=== PATIENT | female | born 1995 | race American Indian/Alaskan Native ===

== ENCOUNTER 2018-09-05 16:22 | Emergency (ER) | payer MEDICAID ==
[2018-09-05 17:16] VITALS: BP 108/62
--- NOTE | 2018-09-05 17:19 | Event Note ---
ED Screening Note ED Screening Note: pt presents with lower back pain states she is also having some chest discomfort no dysuria OB: [facility] pt is 7 weeks no abd pain, no vaginal bleeding This initial assessment/diagnostic orders/clinical plan/treatment(s) is/are subject to change based on patients health status, clinical progression and re- assessment by fellow clinical providers in the ED. Further treatment and workup at subsequent clinical providers discretion. Patient/guardian urged not to elope from the ED as their condition may be serious if not clinically assessed and managed. Initial orders include: labs, UA, EKG
[2018-09-05 18:06] LABS: Bacteria,Urine 1+ /HPF (Negative); Bilirubin,Urine NEG (Negative); Blood,Urine NEG (Negative); Color,Urine Yellow (Yellow); Mucus,Urine FEW /HPF; Protein,Urine <15 mg/dL mg/dL (Negative); Urobilinogen,Urine < 2.0 mg/dL (<2.0)
[2018-09-05 18:34] LABS: Basophils # (Auto) 0.1 K/mm3 (0.0-0.1); Basophils % (Auto) 0.5 % (0.0-1.8); Eosinophils # (Auto) 0.1 K/mm3 (0.0-0.4); Eosinophils % (Auto) 0.5 % (0.0-4.3); Hematocrit 31.7 % (30.3-42.9); Hemoglobin 10.6 gm/dl (10.1-14.3); Lymphocytes # (Auto) 2.4 K/mm3 (1.2-5.4); Lymphocytes % (Auto) 15.6 % (13.4-35.0); Mean Corpuscular HGB Conc 34 % (30-34); Mean Corpuscular Volume 85 fl (79-97); Monocytes # (Auto) 0.8 K/mm3 (0.0-0.8); Monocytes % (Auto) 5.1 % (0.0-7.3); Platelet Count 305 K/mm3 (140-440); Red Blood Count 3.74 M/mm3 (3.65-5.03); Red Cell Distribution Width 14.2 % (13.2-15.2)
[2018-09-05 18:45] LABS: BUN/Creatinine Ratio 12; Blood Urea Nitrogen 6 mg/dL (7-17); Calcium 8.8 mg/dL (8.4-10.2); Hemolysis Index 0
== END 2018-09-05 22:50 | disposition left against medical advice (07) ==
LOC: ED 16:22
DX: O26.891 Other specified pregnancy related conditions, first trimester (principal); M54.5 Low back pain; R07.89 Other chest pain; Z3A.01 Less than 8 weeks gestation of pregnancy; Z53.21 Procedure and treatment not carried out due to patient leaving prior to being seen by health care provider
CPT/HCPCS: 36415; 80048; 81001; 84702; 85025; 93005; 93010

== ENCOUNTER 2018-11-04 20:54 | Inpatient (IN) | payer MEDICAID ==
[2018-11-04] MEDS ORDERED: AMPICILLIN/NS 2 GM/100 ML 2 GM/100 ML BAG IV ONE (21:43)
[2018-11-04] MEDS ORDERED: NARCAN 0.4 MG/1 ML IV PRN (21:43)
[2018-11-04] MEDS ORDERED: ZOFRAN IV PRN (21:43)
[2018-11-04] MEDS ORDERED: STADOL IV PRN (21:43)
[2018-11-04] MEDS ORDERED: SUBLIMAZE IV PRN (21:43)
[2018-11-04] MEDS ORDERED: MINERAL OIL PO PRN (21:43)
[2018-11-04] MEDS ORDERED: BRETHINE IVP PRN (21:43)
[2018-11-04] MEDS ORDERED: XYLOCAINE 2% INFILTRATI ONE (21:43)
[2018-11-04] MEDS ORDERED: BRETHINE SUB-Q PRN (21:43)
[2018-11-04 22:57] LABS: Hemoglobin 11.5 gm/dl (10.1-14.3); Mean Corpuscular HGB Conc 33 % (30-34); Mean Corpuscular Volume 84 fl (79-97); Platelet Count 283 K/mm3 (140-440); Red Blood Count 4.16 M/mm3 (3.65-5.03); Red Cell Distribution Width 14.8 % (13.2-15.2)
[2018-11-04] MEDS: LACTATED RINGERS 1,000 ML IV SCH (23:06)
[2018-11-05] LABS: Alanine Aminotransferase 13 units/L (7-56)
[2018-11-05 01:29] LABS: Bilirubin,Urine NEG (Negative); Blood,Urine NEG (Negative); Color,Urine Yellow (Yellow); Urobilinogen,Urine < 2.0 mg/dL (<2.0)
[2018-11-05 01:34] LABS: RBC,Urine > 182.0 /HPF (0.0-6.0); WBC,Urine > 182.0 /HPF (0.0-6.0)
[2018-11-05 01:49] LABS: Uric Acid 3.8 mg/dL (3.5-7.6)
[2018-11-05] MEDS: AMPICILLIN/NS 1 GM/50 ML 1 GM/50 ML BAG IV SCH ×2 (02:48→07:37)
[2018-11-05] MEDS: LACTATED RINGERS 1,000 ML IV SCH ×2 (03:12→05:46)
[2018-11-05] MEDS ORDERED: NARCAN 2 MG/2 ML IV PRN (03:23)
--- NOTE | 2018-11-05 03:26 | Anesthesia Consultation ---
Anesthesia Consult and Med Hx Date of service: 11/05/18 - Airway Anesthetic Teeth Evaluation: Poor, Chipped ROM Head & Neck: Adequate Mental/Hyoid Distance: Adequate Mallampati Class: Class II Intubation Access Assessment: Probably Good - Pulmonary Exam CTA: Yes - Cardiac Exam Cardiac Exam: RRR - Pre-Operative Health Status ASA Pre-Surgery Classification: ASA2 Proposed Anesthetic Plan: Epidural - Pulmonary Hx Smoking: No Hx Asthma: No Hx Respiratory Symptoms: No SOB: No COPD: No Home Oxygen Therapy: No Hx Pneumonia: No Hx Sleep Apnea: No - Cardiovascular System Hx Hypertension: Yes (Chronic) Hx Coronary Artery Disease: No Hx Heart Attack/AMI: No Hx Angina: No Hx Percutaneous Transluminal Coronary Angioplasty (PTCA): No Hx Cardia Arrhythmia: No Hx Pacemaker: No Hx Internal Defibrillator: No Hx Valvular Heart Disease: No Hx Heart Murmur: No Hx Peripheral Vascular Disease: No - Central Nervous System Hx Neuromuscular Disorder: No Hx Seizures: No CVA: No Hx Back Pain: No Hx Psychiatric Problems: No - Gastrointestinal Hx Ulcer: No Hx Gastroesophageal Reflux Disease: No - Endocrine Hx Renal Disease: No Hx End Stage Renal Disease: No Hx Cirrhosis: No Hx Liver Disease: No Hx Insulin Dependent Diabetes: No Hx Non-Insulin Dependent Diabetes: No Hx Thyroid Disease: No Hx Hypothyroidism: No Hx Hyperthyroidism: No - Hematic Hx Anemia: No Hx Sickle Cell Disease: No - Other Systems Hx Alcohol Use: No Hx Substance Use: No Hx Cancer: No Hx Obesity: No
[2018-11-05] MEDS ORDERED: fentaNYL-BUPIV 2 MCG/ML-0.125% 200 MCG/100 ML BAG EPIDURAL ONE (03:32)
[2018-11-05] MEDS ORDERED: fentaNYL-BUPIV 2 MCG/ML-0.125% 200 MCG/100 ML BAG EPIDURAL SCH (04:00)
[2018-11-05] MEDS ORDERED: PITOCin/NS 30 UNIT/500ML 30 UNITS/500 ML BAG IV SCH (07:00)
--- NOTE | 2018-11-05 09:22 | History and Physical Report ---
History of Present Illness Date of examination: 11/05/18 Date of admission: 11/04/18 22:26 Chief complaint: Contractions History of present illness: The patient is a 22 yo at 38.4 weeks EGA who presents with regular uterine contractions. She denies JOHNSON, scotomata. She reports positive movement, denies LOF or vaginal bleeding. She has had regular care with [facility]. 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: herpes (seropositive) Family/Genetic History: diabetes (MGM, PGM), hypertension (father, mother), cancer (MGM breast) - Obstetrical History Expected Date of Delivery: 11/15/18 Actual Gestation: 38 Week(s) 4 Day(s) : 2 Para: 0 Hx # Term Pregnancies: 0 Spontaneous Abortions: 1 Number of Living Children: 0 Medications and Allergies Allergies Allergy/AdvReac Type Severity Reaction Status Date / Time Sulfa (Sulfonamide Allergy Angioedema Verified 09/05/18 16:23 Antibiotics) Home Medications Medication Instructions Recorded Confirmed Last Taken Type Vitamin 1 tab PO DAILY 11/05/18 11/05/18 11/03/18 09:00 History Active Meds: Active Medications Butorphanol Tartrate (Stadol) 2 mg IV Q2H PRN PRN Reason: Pain , Severe (7-10) Ephedrine Sulfate (Ephedrine Sulfate) 10 mg IV Q2M PRN PRN Reason: Hypotension Ephedrine Sulfate (Ephedrine Sulfate) 10 mg IV Q2M PRN PRN Reason: Hypotension Fentanyl (Sublimaze) 100 mcg IV Q2H PRN PRN Reason: Labor Pain Last Admin: 11/04/18 22:55 Dose: 100 mcg Documented by: Oxytocin/Sodium Chloride (Pitocin/Ns 20 Unit/1000ml Drip) 20 units in 1,000 mls @ 125 mls/hr IV DIRECT ZITA Oxytocin/Sodium Chloride (Pitocin/Ns 30 Unit/500ml) 30 units in 500 mls @ 2 mls/hr IV TITR ZITA; Protocol Last Titration: 11/05/18 08:45 Dose: 4 ml/hr, 4 mls/hr Documented by: Lactated Ringer's (Lactated Ringers) 1,000 mls @ 125 mls/hr IV DIRECT ZITA Last Admin: 11/05/18 05:46 Dose: 125 mls/hr Documented by: Ampicillin Sodium (Ampicillin/Ns 1 Gm/50 Ml) 1 gm in 50 mls @ 100 mls/hr IV Q4HR ZITA; Protocol Last Admin: 11/05/18 07:37 Dose: 100 mls/hr Documented by: Fentanyl/Bupivacaine/Sodium Chlor (Fentanyl-Bupiv 2 Mcg/Ml-0.125%) 200 mcg in 100 mls @ 12 mls/hr EPIDURAL TITR ZITA; Protocol Last Admin: 11/05/18 03:51 Dose: 12 mls/hr Documented by: Mineral Oil (Mineral Oil) 30 ml PO QHS PRN PRN Reason: Constipation Naloxone HCl (Narcan 0.4 Mg/1 Ml) 0.1 mg IV Q2MIN PRN PRN Reason: Res Rate </= 8 or 02 SAT < 92% Naloxone HCl (Narcan 2 Mg/2 Ml) 0.2 mg IV Q5M PRN PRN Reason: Respiratory sedation Ondansetron HCl (Zofran) 4 mg IV Q8H PRN PRN Reason: Nausea And Vomiting Last Admin: 11/04/18 22:59 Dose: 4 mg Documented by: Terbutaline Sulfate (Brethine) 0.25 mg SUB-Q ONCE PRN PRN Reason: Hyperstimulation/Hypertonicity Terbutaline Sulfate (Brethine) 0.25 mg IVP ONCE PRN PRN Reason: Hyperstimulation/Hypertonicity Review of Systems All systems: negative Ears, nose, mouth and throat: voice changes (lost voice after vomiting last night) Cardiovascular: no chest pain Respiratory: no cough, no shortness of breath Genitourinary: vaginal discharge, contractions, no vaginal bleeding, no leakage of fluid, no genital sores - Vital Signs Vital signs: Vital Signs Pulse BP 95 H 128/84 11/04/18 21:21 11/04/18 21:21 Temp Pulse Resp BP Pulse Ox 97.8 F 88 18 92/52 100 11/04/18 23:05 11/05/18 09:16 11/04/18 23:55 11/05/18 08:56 11/05/18 09:16 - Physical Exam Lungs: Positive: Normal air movement Abdomen: Positive: normal appearance, soft Genitourinary (Female): Positive: normal external genitalia, normal perenium Vagina: Positive: normal moisture Uterus: Positive: normal size (gravid), normal contour Anus/Rectum: Positive: normal perianal skin Extremities: Positive: normal - Obstetrical Uterine Contraction Monitor Mode: External Cervical Dilatation: 8 Cervical Effacement Percentage: 90 station: -2 with BBOW Uterine Contraction Frequency (min): 5 Uterine Contraction Duration: 60 Uterine Contraction Pattern: Regular Results Result Diagrams: 11/04/18 22:39 11/04/18 23:16 Abnormal lab results 11/04/18 11/04/18 11/04/18 Range/Units 00:30 22:39 23:16 WBC 17.4 H (4.5-11.0) K/mm3 Creatinine 0.4 L (0.7-1.2) mg/dL Urine WBC (Auto) > 182.0 H (0.0-6.0) /HPF All other labs normal. Assessment and Plan 22 yo at 38.4 wks EGA in active labor Chronic hypertension- BP presently wnl GBS positive- Ampicillin prophylaxis HSV positive, on Valtrex suppression Possible LVH- continue to monitor status Borderline IUGR, resolved Pt declines amniotomy. Augment with Pitocin for regular contractions Anticipate
[2018-11-05] MEDS: PITOCin/NS 20 UNIT/1000ML DRIP 20 UNITS/1,000 ML BAG IV SCH ×2 (10:38→11:57)
[2018-11-05] MEDS ORDERED: CYTOTEC PR ONE (10:40)
[2018-11-05] MEDS ORDERED: CYTOTEC ONE (10:41)
--- NOTE | 2018-11-05 10:59 | Procedure Note ---
OB Delivery Note - Delivery Date of Delivery: 11/05/18 Surgeon: JANY CASSIDY Estimated blood loss: other (400mL) - Vaginal Delivery presentation: vertex Delivery position: OA Intrapartum events: PROM->1hr before delivery, meconium, uterine atony Delivery induction: none Delivery augmentation: rupture of membranes, pitocin Delivery monitor: external FHT, external uterine Route of delivery: Delivery placenta: spontaneous Delivery cord: 3 umbilical vessels Episiotomy: none Delivery laceration: other (Bilateral periurethral, right hemostatic, Left periurethral repaired with a figure of eight of 3-0 Vicryl, perineal abrasion hemostatic ) Delivery repair: vicryl Anesthesia: epidural Delivery comments: Pt progressed to complete/complete/+3 and pushed to deliver a viable female via under epidural anesthesia over intact perineum. Head delivered in SUSIE position, quickly followed by shoulders and body. Cord clamped and cut and handed to NICU staff in attendance for meconium. Placenta delivered spontaneously (3VC, intact). Uterine atony noted. Misoprostol 800 mcg placed per rectum with improvement in uterine tone. Vagina and perineum explored. Bilateral periturethrals noted. Right periurethral hemostatic. Left periurethral repaired with a figure of eight of eight of 3-0 Vicryl. Perineal abrasion noted to be hemostatic. EBL 400 mL. - Infant A at 1 minute: 8 at 5 minutes: 9 Gender: Female (2748g (6lb 1oz) @ 1030 am)
[2018-11-05] MEDS ORDERED: PITOCin/NS 20 UNIT/1000ML DRIP 20 UNITS/1,000 ML BAG IV SCH (13:13)
[2018-11-05] MEDS ORDERED: DERMOPLAST TP PRN (13:13)
[2018-11-05] MEDS ORDERED: PHENERGAN PO PRN (13:13)
[2018-11-05] MEDS ORDERED: TYLENOL PO PRN (13:13)
[2018-11-05] MEDS ORDERED: TUCKS PAD TP PRN (13:13)
[2018-11-05] MEDS ORDERED: DULCOLAX PR PRN (13:13)
[2018-11-05] MEDS ORDERED: PHENERGAN PR PRN (13:13)
[2018-11-05] MEDS ORDERED: ZOFRAN IV PRN (13:13)
[2018-11-05] MEDS ORDERED: MILK OF MAGNESIA PO PRN (13:13)
[2018-11-05] MEDS ORDERED: SODIUM CHLORIDE FLUSH SYRINGE 10 ML IV NR (13:13)
[2018-11-05] MEDS ORDERED: BENADRYL PO PRN (13:13)
[2018-11-05] MEDS ORDERED: LANSINOH TP PRN ×2 (13:13)
[2018-11-05] MEDS: IBUPROFEN PO SCH ×2 (13:45→20:20)
[2018-11-05] MEDS: NORCO 5/325 PO PRN ×2 (13:46→20:19)
[2018-11-05] MEDS: FEOSOL PO SCH (22:28)
[2018-11-06 00:01] LABS: Hematocrit 31.2 % (30.3-42.9); Hemoglobin 10.1 gm/dl (10.1-14.3)
[2018-11-06] MEDS: IBUPROFEN PO SCH ×5 (01:11→23:01)
--- NOTE | 2018-11-06 08:05 | Progress Note ---
Assessment and Plan A: PPD# 1 s/p at term, Chronic HTN with new complaint of chest pain P: EKG now. Cardiology consult. Closely monitor clinical status. Subjective - Subjective Date of service: 11/06/18 Principal diagnosis: Chronic HTN, s/p Interval history: Pt reports intermittent chest pain, worse with inspiration since yesterday. Otherwise no complaints. Patient reports: appetite normal, voiding normally, ambulating normally : doing well Objective - Vital Signs Latest vital signs: Vital Signs Temp Pulse Resp BP BP Pulse Ox 11/06/18 03:09 18 11/06/18 00:00 98.4 F 70 16 114/72 11/05/18 20:20 18 11/05/18 20:19 18 11/05/18 19:30 98.4 F 72 19 120/80 11/05/18 16:35 97.2 F L 72 20 100/56 11/05/18 12:55 99.7 F H 82 18 127/70 100 11/05/18 12:05 96 H 133/71 11/05/18 11:50 76 128/63 11/05/18 11:37 75 129/66 11/05/18 11:20 88 126/78 11/05/18 11:06 96 H 142/82 11/05/18 11:00 99.4 F 18 11/05/18 10:51 108 H 100 11/05/18 10:50 108 H 86 11/05/18 10:46 110 H 100 11/05/18 10:41 116 H 100 11/05/18 10:40 107 H 84 11/05/18 10:36 102 H 100 11/05/18 10:31 124 H 100 11/05/18 10:30 65 76 L 11/05/18 10:26 107 H 100 11/05/18 10:24 111 H 119/55 11/05/18 10:23 125 H 93 11/05/18 10:21 85 100 11/05/18 10:16 97 H 100 11/05/18 10:11 97 H 100 11/05/18 10:06 90 100 11/05/18 10:01 96 H 100 11/05/18 09:56 99 H 100 11/05/18 09:54 96 H 96/46 11/05/18 09:51 93 H 100 11/05/18 09:46 112 H 100 11/05/18 09:41 103 H 100 11/05/18 09:36 91 H 100 11/05/18 09:31 95 H 100 11/05/18 09:26 86 100 11/05/18 09:25 92 H 104/56 11/05/18 09:21 86 100 11/05/18 09:16 88 100 11/05/18 09:11 92 H 100 11/05/18 09:06 81 100 11/05/18 09:01 75 100 11/05/18 08:56 80 92/52 100 11/05/18 08:54 85 98/52 11/05/18 08:51 96 H 98 11/05/18 08:46 97 H 97 11/05/18 08:41 106 H 96 11/05/18 08:36 100 H 95 11/05/18 08:31 102 H 96 11/05/18 08:26 92 H 99 11/05/18 08:24 88 111/60 11/05/18 08:21 95 H 100 11/05/18 08:16 98 H 100 11/05/18 08:11 100 H 100 11/05/18 08:06 83 99 Intake and Output 11/05/18 11/06/18 11/06/18 22:59 06:59 14:59 Intake Total 420 Output Total 400 Balance 20 Intake: Oral 120 Intake, Free Water 300 Output: Urine 400 Void 400 Other: Total, Intake Amount 120 Total, Output Amount 400 # Voids Void 2 - Exam Breasts: Present: deferred Cardiovascular: Present: Regular rate Lungs: Present: Clear to auscultation Abdomen: Present: soft Extremities: Present: normal. Absent: tenderness
[2018-11-06] MEDS: FEOSOL PO SCH ×2 (09:11→23:00)
[2018-11-06] MEDS: NORCO 5/325 PO PRN (10:40)
[2018-11-06] MEDS ORDERED: MYLICON PO ONE (11:00)
[2018-11-06] MEDS ORDERED: M-M-R II VACCINE SUB-Q ONE (11:02)
[2018-11-06] MEDS ORDERED: BOOSTRIX IM ONE (11:02)
--- NOTE | 2018-11-06 12:44 | Consultation ---
History of Present Illness Consult date: 11/06/18 Requesting physician: JANY CASSIDY Consult reason: chest pain History of present illness: The pt is a 22 YO female with a past medical history of HTN during and recurrent chest pain. She is followed in our office by Dr. Hill. She presented yesterday for delivery of her baby and subsequently delivered her baby vaginally. She c/o chest pain and thus cardiology has been consulted. She states that she experienced chest pain during delivery and then intermittently overnight after delivery. She describes her chest pain as a midsternal aching pain which is aggravate by deep inspiration and movement. She denies any SOB, palpitations, n/v, diaphoresis, dizziness or syncope. On evaluation she denies any chest pain. She underwent echo in our office on 10/15/2018 which was normal. Past History Past Medical History: hypertension Medications and Allergies Allergies Allergy/AdvReac Type Severity Reaction Status Date / Time Sulfa (Sulfonamide Allergy Angioedema Verified 09/05/18 16:23 Antibiotics) Home Medications Medication Instructions Recorded Confirmed Last Taken Type Ferrous Sulfate [Feosol 325 MG tab] 325 mg PO BID #60 tablet 11/05/18 Unknown Rx HYDROcodone/APAP 5-325 [[place] 1 each PO Q6HR PRN #20 tablet 11/05/18 Unknown Rx 5/325] Ibuprofen [Motrin] 800 mg PO Q8HR PRN #30 tablet 11/05/18 Unknown Rx Vitamin 1 tab PO DAILY 11/05/18 11/05/18 11/03/18 09:00 History Active Meds: Active Medications Acetaminophen (Tylenol) 650 mg PO Q4H PRN PRN Reason: Pain MILD(1-3)/Fever >100.5/JOHNSON Acetaminophen/Hydrocodone Bitart ([place] 5/325) 2 each PO Q6H PRN PRN Reason: Pain, Moderate (4-6) Last Admin: 11/06/18 10:40 Dose: 2 each Documented by: Benzocaine/Menthol (Dermoplast) 1 spray TP PRN PRN PRN Reason: Pain, Moderate (4-6) Last Admin: 11/05/18 13:47 Dose: 1 spray Documented by: Bisacodyl (Dulcolax) 10 mg MI BID PRN PRN Reason: Constipation Diphenhydramine HCl (Benadryl) 25 mg PO Q6H PRN PRN Reason: Itching Ephedrine Sulfate (Ephedrine Sulfate) 10 mg IV Q2M PRN PRN Reason: Hypotension Ferrous Sulfate (Feosol) 325 mg PO BID [facility] Last Admin: 11/06/18 09:11 Dose: 325 mg Documented by: Fentanyl/Bupivacaine/Sodium Chlor (Fentanyl-Bupiv 2 Mcg/Ml-0.125%) 200 mcg in 100 mls @ 12 mls/hr EPIDURAL TITR ZITA; Protocol Last Infusion: 11/05/18 10:40 Dose: 12 mls/hr Documented by: Oxytocin/Sodium Chloride (Pitocin/Ns 20 Unit/1000ml Drip) 20 units in 1,000 mls @ 250 mls/hr IV DIRECT ZITA Ibuprofen (Ibuprofen) 600 mg PO Q6H [facility] Last Admin: 11/06/18 09:11 Dose: 600 mg Documented by: Magnesium Hydroxide (Milk Of Magnesia) 30 ml PO HS PRN PRN Reason: Constipation Multi-Ingredient Ointment (Lansinoh) 1 applic TP PRN PRN PRN Reason: Sore Nipples Multi-Ingredient Ointment (Lansinoh) 1 applic TP PRN PRN PRN Reason: dryness/cracking Naloxone HCl (Narcan 2 Mg/2 Ml) 0.2 mg IV Q5M PRN PRN Reason: Respiratory sedation Ondansetron HCl (Zofran) 4 mg IV Q8H PRN PRN Reason: Nausea And Vomiting Promethazine HCl (Phenergan) 25 mg MI Q6H PRN PRN Reason: Nausea And Vomiting Promethazine HCl (Phenergan) 25 mg PO Q6H PRN PRN Reason: Nausea And Vomiting Sodium Chloride (Sodium Chloride Flush Syringe 10 Ml) 10 ml IV PRN NR Stop: 11/06/18 13:12 [place]/Glycerin (Tucks Pad) 1 each TP PRN PRN PRN Reason: Hemorrhoid/cleansing/soothing Last Admin: 11/05/18 13:46 Dose: 1 each Documented by: Review of Systems Constitutional: no weight loss, no weight gain, no fever, no chills, no sweats Ears, nose, mouth and throat: no ear pain, no nose pain, no sinus pressure, no sinus pain Cardiovascular: chest pain, high blood pressure, no orthopnea, no palpitations, no rapid/irregular heart beat, no edema, no syncope, no lightheadedness, no shortness of breath, no dyspnea on exertion Respiratory: no cough, no shortness of breath, no dyspnea on exertion, no congestion, no wheezing, no pain on inspiration Gastrointestinal: no abdominal pain, no nausea, no vomiting, no diarrhea, no constipation, no change in bowel habits Genitourinary Female: no pelvic pain, no flank pain, no dysuria, no urinary jenny quency, no urgency Musculoskeletal: no neck stiffness, no neck pain, no shooting arm pain, no arm numbness/tingling, no low back pain, no shooting leg pain Integumentary: no rash, no pruritis, no redness, no sores, no wounds Neurological: no head injury, no paralysis, no weakness, no parathesias, no numbness, no tingling, no seizures, no syncope Psychiatric: no anxiety Endocrine: no cold intolerance, no heat intolerance Hematologic/Lymphatic: no easy bruising, no easy bleeding Allergic/Immunologic: no urticaria, no wheezing Physical Examination Vital Signs Pulse BP 95 H 128/84 11/04/18 21:21 11/04/18 21:21 General appearance: no acute distress HEENT: Positive: PERRL, Normocephaly, Mucus Membranes Moist Neck: Positive: neck supple, trachea midline Cardiac: Positive: Reg Rate and Rhythm, S1/S2 Lungs: Positive: Decreased Breath Sounds Neuro: Positive: Grossly Intact Abdomen: Negative: Tender Skin: Negative: Rash Musculoskeletal: No Pain Extremities: Absent: edema Results 11/05/18 22:54 11/04/18 23:16 CBC 11/05/18 Range/Units 22:54 Hgb 10.1 (10.1-14.3) gm/dl Hct 31.2 (30.3-42.9) % - Imaging and Cardiology Echo: report reviewed (She underwent echo in our office on 10/15/2018 which was normal. ) EKG: report reviewed, image reviewed EKG interpretations - Telemetry EKG Rhythm: Sinus Rhythm - EKG Sinus rhythms and dysrhythmias: sinus rhythm Assessment and Plan ECG with SR, NAF. Chris negative for AMI x 1 set. Echo done in our office on 10/15/2018 was normal. Chest pain currently resolved. Obtain second set of Chris and repeat ECG in AM. Likely d/c home tomorrow. The patient has been seen in conjunction with Dr. Ton Guerrero who agrees with the assessment and plan of care. - Patient Problems (1) Chest pain Current Visit: Yes Status: Acute (2) state Current Visit: Yes Status: Acute (3) HTN (hypertension) Current Visit: Yes Status: Chronic
[2018-11-06] MEDS: PEPCID PO SCH (15:41)
--- NOTE | 2018-11-06 21:39 | Post Anesthesia Evaluation ---
- Post Anesthesia Evaluation Patient Participated: Yes Airway Patent: Yes Stable Respiratory Function: Yes Nausea/Vomiting: No Temp > 96.8F: Yes Pain Manageable: Yes Adequeate Hydration: Yes Anesthesia Complications: No Block Receding Appropriately: Yes Patient on Ventilator: No
--- NOTE | 2018-11-07 10:49 | Progress Note ---
Assessment and Plan no further cp ce neg x 3 ecg wnl x 2 stable cv status no further testing warranted at this time - Patient Problems (1) Chest pain Current Visit: Yes Status: Acute (2) state Current Visit: Yes Status: Acute (3) HTN (hypertension) Current Visit: Yes Status: Chronic Subjective Date of service: 11/07/18 Principal diagnosis: Chronic HTN, s/p Interval history: resting comfortably Objective Vital Signs Temp Pulse Resp BP BP Pulse Ox 11/07/18 08:43 98.1 F 54 L 20 136/75 100 11/07/18 00:00 98.4 F 74 18 114/75 11/06/18 16:42 97.6 F 51 L 18 118/65 92 - Physical Examination HEENT: Positive: PERRL, Normocephaly, Mucus Membranes Moist Neck: Positive: neck supple, trachea midline Neuro: Positive: Grossly Intact Abdomen: Negative: Tender Skin: Negative: Rash Musculoskeletal: No Pain Extremities: Absent: edema - Imaging and Cardiology EKG: report reviewed, image reviewed Echo: report reviewed (She underwent echo in our office on 10/15/2018 which was normal. ) - EKG Sinus rhythms and dysrhythmias: sinus rhythm
[2018-11-07] MEDS: PEPCID PO SCH (14:15)
[2018-11-07] MEDS: NORCO 5/325 PO PRN (14:16)
[2018-11-07] MEDS: FEOSOL PO SCH ×2 (14:20→23:46)
--- NOTE | 2018-11-07 15:17 | Progress Note ---
Assessment and Plan A: PPD# 2 s/p at term, Chronic HTN with new complaint of chest pain, now with nausea, vomiting and dyspnea s/p Cardiology consult with normal labs, unlikely cardiac etiology P: CBC, CMP, amylase, lipase STAT. Restart IV fluids. With dyspnea and chest pain close to vaginal delivery, plan to do CTA to rule out PE and continuous pulse ox. Closely monitor clinical status. Subjective - Subjective Date of service: 11/07/18 Principal diagnosis: Chronic HTN, s/p , chest pain Interval history: Pt reports that her chest pain has continued despite administration of Pepcid and Simethicone, and she now has pain in her mid-back. She reports nausea and vomiting all day yesterday and this morning. She has not tolerated her oral pain medication. She is very frustrated that she does not feel well. She now reports shortness of breath today. Patient reports: voiding normally, flatus, bowel movement, pain poorly controlled, ambulating normally, nauseated, no appetite normal : doing well Objective - Vital Signs Latest vital signs: Vital Signs Temp Pulse Resp BP BP Pulse Ox 11/07/18 08:43 98.1 F 54 L 20 136/75 100 11/07/18 00:00 98.4 F 74 18 114/75 11/06/18 16:42 97.6 F 51 L 18 118/65 92 - Exam Narrative Exam: pt appears somewhat ill Breasts: Present: deferred Cardiovascular: Present: Regular rate Lungs: Present: Clear to auscultation Abdomen: Present: soft, normal bowel sounds Extremities: Present: normal
[2018-11-07] MEDS: D5/0.45NS 1,000 ML IV SCH ×2 (16:15→23:52)
[2018-11-07] MEDS ORDERED: TORADOL IV PRN (16:54)
[2018-11-07 17:01] LABS: Basophils % (Auto) 0.3 % (0.0-1.8); Eosinophils % (Auto) 0.3 % (0.0-4.3); Hematocrit 32.8 % (30.3-42.9); Hemoglobin 11.3 gm/dl (10.1-14.3); Lymphocytes # (Auto) 1.3 K/mm3 (1.2-5.4); Lymphocytes % (Auto) 9.8 % (13.4-35.0); Mean Corpuscular HGB Conc 35 % (30-34); Mean Corpuscular Volume 83 fl (79-97); Monocytes # (Auto) 0.3 K/mm3 (0.0-0.8); Monocytes % (Auto) 2.3 % (0.0-7.3); Platelet Count 298 K/mm3 (140-440); Red Blood Count 3.97 M/mm3 (3.65-5.03); Red Cell Distribution Width 14.3 % (13.2-15.2)
[2018-11-07 17:28] LABS: Alanine Aminotransferase 17 units/L (7-56); Albumin 3.4 g/dL (3.9-5); BUN/Creatinine Ratio 10; Blood Urea Nitrogen 4 mg/dL (7-17); Calcium 8.5 mg/dL (8.4-10.2); Hemolysis Index 1
--- NOTE | 2018-11-07 19:32 | Cat Scan Report ---
CTA CHEST WITH IV CONTRAST INDICATION: Persistent chest pain and dyspnea after vaginal delivery. TECHNIQUE: Axial CT images were obtained through the chest after injection of 100 mL Omnipaque 350 IV contrast. 3 plane MIP reconstructions were produced. All CT scans at this location are performed using CT dose reduction for ALARA by means of automated exposure control. COMPARISON: None available. FINDINGS: PULMONARY ARTERIES: Well-opacified without suspicious filling defects concerning for thromboemboli. AORTA AND ARTERIES: No acute abnormality. MEDIASTINUM: No significant abnormality of the thyroid gland. The trachea and main bronchi are patent and normal in caliber. No mass or lymphadenopathy. Normal heart size without a pericardial effusion. LUNGS: No suspicious consolidation, nodule or mass. No pneumothorax or pleural effusion. ADDITIONAL FINDINGS: None. UPPER ABDOMEN: No acute findings. BONES: No significant osseous abnormality. IMPRESSION: CT evidence of pulmonary artery thromboembolism or other acute abnormalities of the chest. Signer Name: Ronni Loving MD Signed: 11/07/2018 7:28 PM Workstation Name: [id number]
[2018-11-07] MEDS: MORPHINE IV PRN ×2 (19:47→23:54)
--- NOTE | 2018-11-07 20:33 | Event Note ---
Patient was seen and still has some chest pain. Normal vss. CT report reviewed and noted no PE or thromboembolic condition. continue with close monitor of vss.
[2018-11-08] MEDS: IBUPROFEN PO SCH ×3 (04:03→16:00)
[2018-11-08] MEDS: MORPHINE IV PRN (04:03)
--- NOTE | 2018-11-08 09:54 | Progress Note ---
Assessment and Plan A: PPD# 3 s/p at term, Chronic HTN with new complaint of chest pain, now with nausea, vomiting and dyspnea s/p Cardiology consult with normal labs, unlikely cardiac etiology. P: Labs normal CT scan neg for PE resolved chest pain Affect better this am "smiling: -awaiting consult with Social service and behavior health once cleared may be discharged home with f/u next week Subjective - Subjective Date of service: 11/08/18 Principal diagnosis: Chronic HTN, s/p , chest pain Patient reports: appetite normal, voiding normally, pain well controlled, flatus, ambulating normally : doing well Objective - Vital Signs Latest vital signs: Vital Signs Temp Pulse Resp BP BP Pulse Ox 11/08/18 08:31 97.8 F 18 130/83 11/08/18 08:00 97.7 F 51 L 18 130/83 11/08/18 04:03 20 11/08/18 00:40 98.3 F 55 L 18 120/72 11/07/18 23:54 20 11/07/18 19:47 28 H 11/07/18 16:58 98.5 F 56 L 18 108/64 99 Intake and Output 11/07/18 11/08/18 11/08/18 23:59 07:59 15:59 Intake Total 1120 240 Balance 1120 240 Intake: IV 1000 D5/0.45NS 1,000 ml @ 150 1000 mls/hr IV DIRECT ZITA Rx#:[id number] Intake, Free Water 120 240 Other: # Voids Void 1 1 - Exam Breasts: Present: normal Cardiovascular: Present: Regular rate, Normal S1 Lungs: Present: Clear to auscultation, Normal air movement Abdomen: Present: normal appearance, soft, normal bowel sounds. Absent: distention, tenderness, guarding Uterus: Present: normal, firm, fundal height below umbilicus. Absent: bogginess, tenderness Extremities: Present: normal Deep Tendon Reflex Grade: Normal +2 Incision: Present: normal - Labs Labs: Abnormal lab results 11/07/18 11/07/18 Range/Units 16:39 16:39 WBC 13.3 H (4.5-11.0) K/mm3 MCHC 35 H (30-34) % Lymph % (Auto) 9.8 L (13.4-35.0) % Seg Neutrophils % 87.3 H (40.0-70.0) % Seg Neutrophils # 11.6 H (1.8-7.7) K/mm3 BUN 4 L (7-17) mg/dL Creatinine 0.4 L (0.7-1.2) mg/dL Alkaline Phosphatase 130 H (35-129) units/L Albumin 3.4 L (3.9-5) g/dL
--- NOTE | 2018-11-08 09:58 | Discharge Summary ---
Providers - Providers Date of Admission: 11/04/18 22:26 Date of discharge: 11/08/18 Attending physician: JANY CASSIDY 11/06/18 08:05 Consult to Physician [CONS] Urgent Comment: Consulting Provider: NIMO DAMON Physician Instructions: Reason For Exam: s/p yesterday, chronic HTN, new chest pain 11/07/18 20:33 Consult to Case Management [CONS] Urgent Services Needed at Discharge: Solid Waste Manager Notified:: [phone] Was contact made?: No Consult to Mental Health [CONS] Urgent Reason For Exam: change in behavior day [address] consult to:: social media marketing analyst and mental health Notified:: [phone] Was contact made?: No Primary care physician: JANY CASSIDY Hospitalization Reason for admission: active labor Delivery: Episiotomy: none Laceration: none Other procedures: none (chest pain and nausea and vomiting ( resolved all testing and labs normal) ), other complications: other (see above ) Discharge diagnosis: IUP at term delivered [place] baby: female Hospital course: patient had a . After delivery chest pain normal labs and ct neg for PE. some changes in affect consult with behavioral health and ss. will discharge home to f/u in 1 week Condition at discharge: Good Disposition: DC-01 TO HOME OR SELFCARE Plan - Discharge Medications Prescriptions: Ferrous Sulfate [Feosol 325 MG tab] 325 mg PO BID #60 tablet Ibuprofen [Motrin] 800 mg PO Q8HR PRN #30 tablet PRN Reason: Pain, Moderate (4-6) HYDROcodone/APAP 5-325 [[place] 5/325] 1 each PO Q6HR PRN #20 tablet PRN Reason: Pain - Provider Discharge Summary Activity: routine, no sex for 6 weeks, no strenuous exercise Diet: routine Instructions: routine Additional instructions: [] Smoking cessation referral if applicable(refer to patient education folder for contact #) [] Refer to [facility]'s [facility] Booklet Call your doctor immediately for: * Fever > 100.5 * Heavy vaginal bleeding ( >1 pad per hour) * Severe persistent headache * Shortness of breath * Reddened, hot, painful area to leg or breast * Drainage or odor from incision. * Keep incision clean and dry at all times and follow doctor's instructions regarding bathing/showering - Follow up plan Follow up: JANY CASSIDY MD [Primary Care Provider] - 7 Days
[2018-11-08] MEDS: FEOSOL PO SCH (10:34)
[2018-11-08] MEDS: PEPCID PO SCH (10:34)
[2018-11-08] MEDS: D5/0.45NS 1,000 ML IV SCH (10:34)
--- NOTE | 2018-11-08 12:18 | Consultation ---
History of Present Illness - Reason for Consult Consult date: 11/08/18 Reason for consult: Mental Health Evaluation Requesting physician: THONY FERRARO - Chief Complaint Chief complaint: "I am a proud mom" - History of Present Psychiatric Illness 22 y.o. AA female who presented to the hospital with regular uterine contractions. Psychiatry was consulted to see the patient for change of behavior. Today the patient was calm and cooperative during the assessment. She stated that she was experiencing chest pain yesterday and didn't feel well. She stated that she can't recall any issues that may have occurred. She stated that she look forward to being a new mom. She was observed bonding with her throughout the interview. She stated she her relationship with her family is well. She denies having a mental health dx nor a previous suicide attempt when asked. She denies SI/HI's and AVH's. She denies a poor appetite and erratic sleep. She denies recreational drug use and alcohol consumption (etoh). Per the patient's assigned nurse, she denies any behavioral disturbances by the patient. Medications and Allergies Allergies Allergy/AdvReac Type Severity Reaction Status Date / Time Sulfa (Sulfonamide Allergy Angioedema Verified 09/05/18 16:23 Antibiotics) Home Medications Medication Instructions Recorded Confirmed Last Taken Type Ferrous Sulfate [Feosol 325 MG tab] 325 mg PO BID #60 tablet 11/05/18 Unknown Rx HYDROcodone/APAP 5-325 [[place] 1 each PO Q6HR PRN #20 tablet 11/05/18 Unknown Rx 5/325] Ibuprofen [Motrin] 800 mg PO Q8HR PRN #30 tablet 11/05/18 Unknown Rx Vitamin 1 tab PO DAILY 11/05/18 11/05/18 11/03/18 09:00 History Active Meds: Active Medications Acetaminophen (Tylenol) 650 mg PO Q4H PRN PRN Reason: Pain MILD(1-3)/Fever >100.5/JOHNSON Acetaminophen/Hydrocodone Bitart ([place] 5/325) 2 each PO Q6H PRN PRN Reason: Pain, Moderate (4-6) Last Admin: 11/07/18 14:16 Dose: 2 each Documented by: Benzocaine/Menthol (Dermoplast) 1 spray TP PRN PRN PRN Reason: Pain, Moderate (4-6) Last Admin: 11/05/18 13:47 Dose: 1 spray Documented by: Bisacodyl (Dulcolax) 10 mg CO BID PRN PRN Reason: Constipation Diphenhydramine HCl (Benadryl) 25 mg PO Q6H PRN PRN Reason: Itching Last Admin: 11/07/18 03:00 Dose: 25 mg Documented by: Ephedrine Sulfate (Ephedrine Sulfate) 10 mg IV Q2M PRN PRN Reason: Hypotension Famotidine (Pepcid) 40 mg PO QDAY PENDING SALE TO [facility] Last Admin: 11/08/18 10:34 Dose: 40 mg Documented by: Ferrous Sulfate (Feosol) 325 mg PO BID PENDING SALE TO [facility] Last Admin: 11/08/18 10:34 Dose: 325 mg Documented by: Fentanyl/Bupivacaine/Sodium Chlor (Fentanyl-Bupiv 2 Mcg/Ml-0.125%) 200 mcg in 100 mls @ 12 mls/hr EPIDURAL TITR ZITA; Protocol Last Infusion: 11/05/18 10:40 Dose: 12 mls/hr Documented by: Oxytocin/Sodium Chloride (Pitocin/Ns 20 Unit/1000ml Drip) 20 units in 1,000 mls @ 250 mls/hr IV DIRECT ZITA Dextrose/Sodium Chloride (D5/0.45ns) 1,000 mls @ 150 mls/hr IV DIRECT ZITA Last Admin: 11/08/18 10:34 Dose: 150 mls/hr Documented by: Ibuprofen (Ibuprofen) 600 mg PO Q6H PENDING SALE TO [facility] Last Admin: 11/08/18 08:40 Dose: Not Given Documented by: Ketorolac Tromethamine (Toradol) 15 mg IV Q6H PRN PRN Reason: Pain, Mild (1-3) Stop: 11/12/18 16:53 Magnesium Hydroxide (Milk Of Magnesia) 30 ml PO HS PRN PRN Reason: Constipation Morphine Sulfate (Morphine) 2 mg IV Q3H PRN PRN Reason: Pain, Moderate (4-6) Last Admin: 11/08/18 04:03 Dose: 2 mg Documented by: Multi-Ingredient Ointment (Lansinoh) 1 applic TP PRN PRN PRN Reason: Sore Nipples Multi-Ingredient Ointment (Lansinoh) 1 applic TP PRN PRN PRN Reason: dryness/cracking Naloxone HCl (Narcan 2 Mg/2 Ml) 0.2 mg IV Q5M PRN PRN Reason: Respiratory sedation Ondansetron HCl (Zofran) 4 mg IV Q8H PRN PRN Reason: Nausea And Vomiting Last Admin: 11/07/18 14:13 Dose: 4 mg Documented by: Promethazine HCl (Phenergan) 25 mg CO Q6H PRN PRN Reason: Nausea And Vomiting Promethazine HCl (Phenergan) 25 mg PO Q6H PRN PRN Reason: Nausea And Vomiting Last Admin: 11/07/18 14:16 Dose: 25 mg Documented by: Sofy Barnes/Glycerin (Tucks Pad) 1 each TP PRN PRN PRN Reason: Hemorrhoid/cleansing/soothing Last Admin: 11/05/18 13:46 Dose: 1 each Documented by: Past psychiatric history - Past Medical History Past Medical History: other (Preg x 1, Herpes) Past Surgical History: No surgical history - past Psychiatric treatment and history psychiatric treatment history: Denies a psy and fam psy hx. - Social History Social history: lives with family Mental Status Exam - Vital signs Last Vital Signs Temp 97.8 F 11/08/18 08:31 Pulse 51 L 11/08/18 08:00 Resp 18 11/08/18 08:31 BP 130/83 11/08/18 08:31 Pulse Ox 99 11/07/18 16:58 - Exam Narrative exam: MSE: Appearance: calm, cooperative Behavior: regular eye contact Speech: regular rate and tone Mood: "well" Affect: congruent to mood Thought Process: linear Thought Content: denies SI/HI's and AVH's Motor Activity: laying in bed Cognition: A/O x3 Insight: appropriate Judgment: appropriate Results Result Diagrams: 11/07/18 16:39 11/07/18 16:39 Abnormal lab results 11/07/18 11/07/18 Range/Units 16:39 16:39 WBC 13.3 H (4.5-11.0) K/mm3 MCHC 35 H (30-34) % Lymph % (Auto) 9.8 L (13.4-35.0) % Seg Neutrophils % 87.3 H (40.0-70.0) % Seg Neutrophils # 11.6 H (1.8-7.7) K/mm3 BUN 4 L (7-17) mg/dL Creatinine 0.4 L (0.7-1.2) mg/dL Alkaline Phosphatase 130 H (35-129) units/L Albumin 3.4 L (3.9-5) g/dL All other labs normal. Assessment and Plan Assessment and plan: Impression: Psychotic/Mood DO ruled out. Today the patient was calm and coop erative during the assessment. Recommendation/Plan: The patient can follow up with her TELEPHONE PLANT POWER OPERATOR once discharged. Psy sign off. Staffed with Dr Edgar Millard.
[2018-11-08 17:35] VITALS: BP 116/85
== END 2018-11-08 17:10 | disposition home or self-care (01) | DRG 774 ==
LOC: TRG 20:54 → LD 22:26 → OB 11-05 13:10
PROVIDERS: ADMIT Obstetrics & Gynecology; ATTEND Obstetrics & Gynecology
PROC: 10E0XZZ Delivery of Products of Conception, External Approach (ICD-10-PCS; principal; 2018-11-05)
PROC: 0UQMXZZ Repair Vulva, External Approach (ICD-10-PCS; 2018-11-05)
PROC: 3E0R3BZ Introduction of Anesthetic Agent into Spinal Canal, Percutaneous Approach (ICD-10-PCS; 2018-11-05)
PROC: 00HU33Z Insertion of Infusion Device into Spinal Canal, Percutaneous Approach (ICD-10-PCS; 2018-11-05)
PROC: 3E0234Z Introduction of Serum, Toxoid and Vaccine into Muscle, Percutaneous Approach (ICD-10-PCS; 2018-11-06)
DX: O42.02 Full-term premature rupture of membranes, onset of labor within 24 hours of rupture (principal); O10.92 Unspecified pre-existing hypertension complicating childbirth; R07.9 Chest pain, unspecified; O62.2 Other uterine inertia; O77.0 Labor and delivery complicated by meconium in amniotic fluid; O71.82 Other specified trauma to perineum and vulva; O99.824 Streptococcus B carrier state complicating childbirth; O98.52 Other viral diseases complicating childbirth; B00.9 Herpesviral infection, unspecified; Z3A.38 38 weeks gestation of pregnancy; Z37.0 Single live birth; Z88.2 Allergy status to sulfonamides; Z79.899 Other long term (current) drug therapy; Z23 Encounter for immunization
CPT/HCPCS: 36415; 71275; 80053; 81001; 82150; 82565; 83615; 83690; 84450; 84460; 84484; 84550; 85014; 85018; 85025; 85027; 86592; 86850; 86900; 86901; 88307; 93005; 93010; G0378; J0290; J2270; J2405; J2590; J3010; J7120; Q0169; Q9967

== ENCOUNTER 2019-04-07 08:32 | Outpatient (CLI) | payer MEDICAID ==
--- NOTE | 2019-04-07 09:45 | Ultrasound Report ---
COMPLETE BILATERAL BREAST ULTRASOUND HISTORY: 23-year-old with history of recent bilateral breast abscesses and masses. COMPARISON: None. FINDINGS: Complete sonographic evaluation of the right breast including imaging of the four quadrant s and subareolar areas reveals no abscess and no solid mass. Benign cyst at 12:00 9 cm from the nippl e measures 7 mm and a second cyst at 12:00 9 cm from the nipple measures 5 mm. Benign cyst at 2:00 4 cm from the nipple measures 5 mm. Complete sonographic evaluation of the left breast including imaging of the four quadrants and subare olar areas reveals no abscess and no solid mass. A benign cyst at 10:00 7 cm from the nipple measures 4 mm. IMPRESSION: Bilateral subcentimeter benign cysts. No abscess and no solid mass of either breast. If the clinical examination remains stable, recommend bilateral screening mammograms beginning annual ly at age 40 per the current [employer] guidelines or at intervals appropriate for the patient's risk factors. BIRADS 2: Benign Signer Name: Taco Rodriguez MD Signed: 04/07/2019 9:40 AM Workstation Name: [id number]
== END 2019-04-07 08:33 | disposition home or self-care (01) ==
LOC: SPVWC 08:32
PROVIDERS: ATTEND Surgery
DX: N60.01 Solitary cyst of right breast (principal); N60.02 Solitary cyst of left breast